=== PATIENT | male | born 2000 | race Caucasian/White ===

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

== ENCOUNTER → 2020-09-16 | Outpatient (CLI) | payer BC | END | disposition home or self-care (01) | LOC: LABWHC1 10:17 | PROVIDERS: ATTEND Family Medicine | DX: Z20.828 Contact with and (suspected) exposure to other viral communicable diseases (principal) | CPT/HCPCS: U0003; C9803 ==

== ENCOUNTER → 2021-04-06 | Outpatient (CLI) | payer BC | END | disposition home or self-care (01) | LOC: LABWHC1 09:50 | PROVIDERS: ATTEND Nurse Practitioner Family | DX: Z20.822 Contact with and (suspected) exposure to COVID-19 (principal) | CPT/HCPCS: U0003; C9803; U0005 ==

== ENCOUNTER → 2021-07-06 | Outpatient (CLI) | payer BC ==
--- NOTE | 2021-07-07 08:17 | XR ---
EXAMINATION TYPE: XR knee complete LT DATE OF EXAM: 07/06/2021 COMPARISON: None HISTORY: Pain TECHNIQUE: 3 view left knee FINDINGS: No acute fractures or dislocations are evident. No joint effusion is evident. Joint spaces are preserved. Follow up exams can be performed 7-10 days from acute trauma for continued pain. IMPRESSION: 1. Normal three-view left knee
== END | disposition home or self-care (01) ==
LOC: RADXRMAIN 17:30
PROVIDERS: ATTEND Nurse Practitioner Family
DX: M25.562 Pain in left knee (principal)

== ENCOUNTER → 2022-03-30 | Outpatient (CLI) | payer BC ==
[2022-03-30 18:11] LABS: Basophils # (A) 0.05 X 10*3/uL (0.00-0.10); Basophils % (A) 0.6 %; Eosinophils # (A) 0 X 10*3/uL (0.04-0.35); Eosinophils % (A) 0 %; HCT 50.6 % (39.6-50.0); HGB 16.8 g/dL (13.0-17.0); Immature Grans, Automated 0.1 %; Lymphocytes # (A) 2.55 X 10*3/uL (0.90-5.00); Lymphocytes % (A) 28.3 %; MCH 29.5 pg (27.0-32.0); MCHC 33.2 g/dL (32.0-37.0); MCV 88.9 fL (80.0-97.0); Mean Platelet Volume 9.5 fL (9.5-12.2); Monocytes # (A) 0.59 X 10*3/uL (0.20-1.00); Monocytes % (A) 6.5 %; NRBC Per 100 WBC 0 /100 WBCS (0.0-0.0); Neutrophils # (A) 5.82 X 10*3/uL (1.80-7.70); Neutrophils % (A) 64.5 %; Platelet Count 331 X 10*3/uL (140-440); RBC 5.69 X 10*6/uL (4.40-5.60); RDW 13.2 % (11.5-14.5); WBC 9.02 X 10*3/uL (4.50-10.00)
[2022-03-30 18:32] LABS: African American GFR (CKD) 109.1 (60.0-200.0); Albumin 5.1 g/dL (3.8-4.9); Albumin/Globulin Ratio 2.22 (1.60-3.17); Anion Gap 12.3 mmol/L (10.00-18.00); BUN/Creat Ratio 12.73 Ratio (12.00-20.00); Calcium 9.8 mg/dL (8.7-10.3); Carbon Dioxide 24.7 mmol/L (20.0-27.5); Globulin 2.3 g/dL (1.6-3.3); HDL Cholesterol 71.1 mg/dL (40.00-60.00); Non-African American GFR(CKD) 94.1 (60.0-200.0); Total Bilirubin 0.7 mg/dL (0.30-1.20); Total Protein 7.4 g/dL (6.2-8.2); Triglycerides 44.1 mg/dL (0.00-149.00)
[2022-03-30 18:43] LABS: Chol/HDL Ratio 2.31 Ratio
== END | disposition home or self-care (01) ==
LOC: LABWHC1 10:54
PROVIDERS: ATTEND Family Medicine
DX: Z00.00 Encounter for general adult medical examination without abnormal findings (principal)
CPT/HCPCS: 36415; 80053; 80061; 83721; 85025